=== PATIENT | male | born 1965 | race Two or more races ===

== ENCOUNTER 2022-07-18 13:35 | Emergency (ER) | payer OTHER ==
[~2022-07-18] VITALS: Ht 165.1 cm; Wt 68.2 kg
[2022-07-18 14:49] LABS: Basophils # (auto) 0.1 10 ^3/uL (0-0.2); Basophils % (auto) 0.5 % (0.0-2.0); Eosinophils # (auto) 0.1 10 ^3/uL (0-0.8); Eosinophils % (auto) 0.6 % (0.0-7.0); Hematocrit 44.6 % (41.0-53.0); Hemoglobin 15.8 g/dL (13.5-17.5); Lymphocytes % (auto) 9.6 % (10.0-50.0); Mean Corpuscular Hemoglobin 31.6 pg (28.0-32.0); Mean Corpuscular Hgb Conc. 35.4 g/dL (32.0-36.0); Mean Corpuscular Volume 89.3 fL (80.0-100.0); Monocytes # (auto) 0.7 10 ^3/uL (0-1.3); Monocytes % (auto) 6.1 % (0.0-12.0); Neutrophils # (auto) 8.8 10 ^3/uL (1.6-8.6); Neutrophils % (auto) 83.2 % (37.0-80.0); Nucleated Red Blood Cells % 0.2 %; Red Blood Cells 4.99 10^6/uL (4.5-5.90); White Blood Cell 10.6 10^3/uL (4.4-10.8)
[2022-07-18 15:03] LABS: Calcium 8.4 mg/dL (8.5-10.1); Potassium 3.5 mmol/L (3.5-5.1)
[2022-07-18 15:07] LABS: Bilirubin, Total 0.8 mg/dL (0.2-1.0); Total Protein 6.7 g/dL (6.4-8.2)
[2022-07-18 15:27] LABS: INR 1.01 (0.9-1.15); Partial Thromboplastin Time 27.5 sec (24.6-33.4)
[2022-07-18] MEDS ORDERED: ONDANSETRON HCL 4 MG/2 ML VIAL IV ONE (15:30)
[2022-07-18] MEDS ORDERED: MORPHINE SULFATE INJ 2 MG/ml SYRG IV ONE ×2 (15:30→15:45)
[2022-07-18 18:38] VITALS: BP 132/80
== END 2022-07-18 19:25 | disposition short-term general hospital (02) ==
LOC: ER 13:35 → EDBD 13:35 → ER 19:25
DX: S06.0X9A Concussion with loss of consciousness of unspecified duration, initial encounter (principal); Z20.822 Contact with and (suspected) exposure to COVID-19; W17.89XA Other fall from one level to another, initial encounter; Y93.89 Activity, other specified; Y92.89 Other specified places as the place of occurrence of the external cause; Y99.0 Civilian activity done for income or pay
CPT/HCPCS: 36415; 70450; 70486; 71250; 72125; 74176; 80053; 84484; 85025; 85610; 85730; 87426; 96374; 96375; 99285; J2270; J2405